=== PATIENT | female | born 1975 | race Caucasian/White ===

== ENCOUNTER 2016-10-02 15:08 | Emergency (ER) | payer OTHER ==
[~2016-10-02] VITALS: Ht 172.7 cm; Wt 80.0 kg
[2016-10-02 15:12] VITALS: PULSE 90; RESP 17; TEMP 98.7; O2SAT 99
[2016-10-02] MEDS ORDERED: SODIUM CHLORIDE 0.9% FLUSH 10 ML FLUSH IVF PRN (15:30)
[2016-10-02] MEDS ORDERED: SODIUM CHLOR 0.9% 1000 ML INJ 1,000 ML IV ONE (15:30)
--- NOTE | 2016-10-02 15:32 | PD ---
HPI Chief Complaint: Syncope/Near-Syncope Time Seen by Provider: 15:19 Travel History International Travel<30 days: No Contact w/Intl Traveler<30days: No Traveled to known affect area: No History of Present Illness HPI The patient was seen and examined in the presence of the nurse. This [place] since 7 AM. She started to get dizzy and lightheaded and nauseous. She felt like she was dehydrated. She felt like she was given a pass out so she sat down and the symptoms gradually improved. Paramedics were called and brought her in. She denies having true syncope. No chest pain or palpitations or headache. Symptoms severity was moderate. Duration was 5-10 minutes. She feels improved after being in the air conditioning. [facility] Past Medical History Anemia: Yes Diminished Hearing: No Tetanus Vaccination: Unknown ?: Not Past Surgical History Cholecystectomy: Yes (2003) Social History Alcohol Use: No (RARELY) Tobacco Use: No Substance Use: No Allergies-Medications (Allergen,Severity, Reaction): Coded Allergies: Amoxicillin (Verified Allergy, Intermediate, YEAST INFECTION, 10/02/16) Reported Meds & Prescriptions Reported Meds & Active Scripts Active No Active Prescriptions or Reported Medications Review of Systems General / Constitutional: No: Fever Eyes: No: Visual changes HENT: Positive: Lightheadedness, No: Headaches Cardiovascular: No: Chest Pain or Discomfort Respiratory: No: Shortness of Breath Gastrointestinal: Positive: Nausea, No: Abdominal Pain Genitourinary: No: Dysuria Musculoskeletal: No: Pain Skin: No Rash Neurologic: Positive: Dizziness, No: Weakness Psychiatric: No: Depression Endocrine: No: Polydipsia Hematologic/Lymphatic: No: Easy Bruising Physical Exam Narrative GENERAL: Well-nourished, well-developed patient in no apparent distress. SKIN: Warm and dry. HEAD: Atraumatic. Normocephalic. EYES: Pupils equal and round. No scleral icterus. No injection or drainage. ENT: No nasal bleeding or discharge. Mucous membranes pink and moist. NECK: Trachea midline. No JVD. CARDIOVASCULAR: Regular rate and rhythm. No murmur appreciated. RESPIRATORY: No accessory muscle use. Clear to auscultation. Breath sounds equal bilaterally. GASTROINTESTINAL: Abdomen soft, non-tender, nondistended. Hepatic and splenic margins not palpable. MUSCULOSKELETAL: No obvious deformities. No clubbing. No cyanosis. No edema. NEUROLOGICAL: Awake and alert. No obvious cranial nerve deficits. Motor grossly within normal limits. Normal speech. PSYCHIATRIC: Appropriate mood and affect; insight and judgment normal. Data Data Last Documented VS Vital Signs Date Time Temp Pulse Resp B/P Pulse Ox O2 Delivery O2 Flow Rate FiO2 10/02/16 15:16 84 17 98 Room Air 10/02/16 15:12 98.7 Orders Electrocardiogram (10/02/16 15:19) Basic Metabolic Panel (Bmp) (10/02/16 15:19) Beta Hcg (Quant/Titer) (10/02/16 15:19) Complete Blood Count With Diff (10/02/16 15:19) Ecg Monitoring (10/02/16 15:19) Iv Access Insert/Monitor (10/02/16 15:19) Sodium Chloride 0.9% Flush (Ns Flush) (10/02/16 15:30) Sodium Chlor 0.9% 1000 Ml Inj (Ns 1000 M (10/02/16 15:30) Acetaminophen (Tylenol) (10/02/16 16:45) Labs Laboratory Tests Test 10/02/16 15:30 White Blood Count 13.7 TH/MM3 Red Blood Count 4.17 MIL/MM3 Hemoglobin 7.9 GM/DL Hematocrit 25.1 % Mean Corpuscular Volume 60.0 FL Mean Corpuscular Hemoglobin 19.0 PG Mean Corpuscular Hemoglobin 31.6 % Concent Red Cell Distribution Width 16.6 % Platelet Count 361 TH/MM3 Mean Platelet Volume 7.7 FL Neutrophils (%) (Auto) 75.6 % Lymphocytes (%) (Auto) 18.7 % Monocytes (%) (Auto) 4.9 % Eosinophils (%) (Auto) 0.4 % Basophils (%) (Auto) 0.4 % Neutrophils # (Auto) 10.4 TH/MM3 Lymphocytes # (Auto) 2.6 TH/MM3 Monocytes # (Auto) 0.7 TH/MM3 Eosinophils # (Auto) 0.1 TH/MM3 Basophils # (Auto) 0.1 TH/MM3 CBC Comment AUTO DIFF Differential Comment AUTO DIFF CONFIRMED Platelet Estimate NORMAL Platelet Morphology Comment NORMAL Sodium Level 140 MEQ/L Potassium Level 3.6 MEQ/L Chloride Level 110 MEQ/L Carbon Dioxide Level 23.5 MEQ/L Anion Gap 7 MEQ/L Blood Urea Nitrogen 12 MG/DL Creatinine 0.81 MG/DL Estimat Glomerular Filtration 78 ML/MIN Rate Random Glucose 95 MG/DL Calcium Level 7.7 MG/DL Human Chorionic Gonadotropin, LESS THAN 1 Quant MIU/ML MDM Medical Decision Making Medical Screen Exam Complete: Yes Emergency Medical Condition: Yes Medical Record Reviewed: Yes Differential Diagnosis Vasovagal episode, cardiac arrhythmia, heat exhaustion Narrative Course I have reviewed the patient's electronic medical record. Patient is never been here before IV placed I gave her a liter of normal saline IV I reviewed her EKG which shows sinus rhythm without ectopy Extended cardiac monitoring reveals sinus rhythm without ectopy CBC shows significant anemia of 7.9. She says she has chronic anemia. She denies any GI bleed. She does not want to bother with this here today. She is in a hurry to get out of here. She just wants to go home. I've asked her to discuss with her physician. Metabolic profile is normal Patient is neurologically intact and symptoms have improved Patient is asymptomatic other than minor headache and asked for Tylenol which I gave her Diagnosis Primary Impression: Pre-syncope Additional Instructions: The patient was advised to follow up with their physician and return if they worsen. Discuss your hemoglobin of 7.9 which means you are significantly anemic with your physician Med/Other Pt SpecificInfo: Other Scripts No Active Prescriptions or Reported Meds Disposition: 01 DISCHARGE HOME Condition: Stable Jese Lopez MD Oct 02, 2016 15:32
[2016-10-02 15:54] LABS: AUTOMATED NEUTROPHIL # 10.4 TH/MM3 (1.8-7.7); BASOPHIL # 0.1 TH/MM3 (0-0.2); BASOPHIL % 0.4 % (0.0-2.0); EOSINOPHIL # 0.1 TH/MM3 (0-0.4); EOSINOPHIL % 0.4 % (0.0-4.0); HEMATOCRIT 25.1 % (35.0-46.0); LYMPH % 18.7 % (9.0-44.0); LYMPHOCYTE # 2.6 TH/MM3 (1.0-4.8); MEAN CORPUSCULAR HGB CONC 31.6 % (32.0-36.0); MONO % 4.9 % (0.0-8.0); NEUT % 75.6 % (16.0-70.0); PLATELET COUNT 361 TH/MM3 (150-450); RED BLOOD COUNT 4.17 MIL/MM3 (4.00-5.30); RED CELL DISTRIBUTION WIDTH 16.6 % (11.6-17.2); WHITE BLOOD COUNT 13.7 TH/MM3 (4.0-11.0)
[2016-10-02 15:56] LABS: HEMO FLAGS AUTO DIFF
[2016-10-02 16:17] LABS: ANION GAP 7 MEQ/L (5-15); BICARBONATE 23.5 MEQ/L (21.0-32.0); BLOOD UREA NITROGEN 12 MG/DL (7-18); CHLORIDE 110 MEQ/L (98-107); GLOMERULAR FILTRATION RATE 78 ML/MIN (>89); POTASSIUM 3.6 MEQ/L (3.5-5.1); SODIUM (NA) 140 MEQ/L (136-145)
[2016-10-02 16:22] LABS: BETA HCG QUANT LESS THAN 1 MIU/ML (0-5)
[2016-10-02 16:24] LABS: PLATELET ESTIMATE SMEAR NORMAL (NORMAL); PLATELET MORPHOLOGY NORMAL (NORMAL); SCAN/DIFF AUTO DIFF CONFIRMED
[2016-10-02] MEDS ORDERED: ACETAMINOPHEN 500 MG CPLT PO ONE (16:45)
[2016-10-02 17:19] VITALS: BP 145/82; TEMP 98
--- NOTE | 2016-10-03 14:51 | EKG ---
Date Performed: 10/02/2016 Time Performed: 16:27:50 PTAGE: 41 years EKG: Sinus rhythm NORMAL ECG NO PREVIOUS TRACING DOCTOR: Alber Simon Interpretating Date/Time 10/03/2016 14:47:27
== END 2016-10-02 17:58 | disposition home or self-care (01) ==
LOC: NEPE 15:08
DX: R55 Syncope and collapse (principal); R11.0 Nausea; R51 Headache; D64.9 Anemia, unspecified; Z86.2 Personal history of diseases of the blood and blood-forming organs and certain disorders involving the immune mechanism
CPT/HCPCS: 80048; 84702; 85025; 93005; 96360; 99284; J7030